=== PATIENT | female | born 1935 | race Caucasian/White ===

== ENCOUNTER 2017-08-28 12:59 | Inpatient (IN) | payer MEDICARE, OTHER ==
[2017-08-28 13:27] LABS: Base Excess-Venous -9.5 mmol/L (0 (+/- 2.5)); CO2 Tension (PvCO2) 32.9 mmHg (41.0-51.0); Calcium, Ionized 0.99 mmol/L (1.12-1.32); Hemoglobin - Calc 9.6 g/dL (12.0-18.0); O2 Tension (PvO2) 63.1 mmHg (35.0-45.0); Potassium 4.1 mmol/L (3.4-4.7); T. Carbon Dioxide 17.1 mmol/L (1.0-85.0); pH (Venous) 7.297 (7.35-7.45); vO2 Saturation-calc 89.6 % (94-98)
[2017-08-28 13:30] LABS: Hemoglobin 10.7 g/dL (12.0-16.0); Mean Corpuscular HGB CONC 34.3 g/dL (32.0-36.0); Mean Corpuscular Hemoglobin 31.9 pg (27.0-31.0); Mean Corpuscular Volume 92.8 fL (78.0-98.0); Platelet Count 97 thou/uL (130-400); RBC Distribution Width 12.8 % (11.5-14.5); Red Blood Cell (RBC) Count 3.37 mill/uL (4.20-5.40); White Blood Cell (WBC) Count 4.6 thou/uL (4.8-10.8)
[2017-08-28 13:34] LABS: INR-International Normal Ratio 1.4; Prothrombin Time 17.2 SEC (12.0-14.7)
[2017-08-28 13:48] LABS: Bilirubin Moderate (Negative); Blood, Urine Large (Negative); Clarity TURBID (Clear); Glucose, Urine (Dipstick) Negative (Negative); Leukocyte Large (Negative); Nitrite Negative (Negative); Protein, Urine (Dipstick) 300 mg/dL (Neg-Trace); Specific Gravity, Urine 1.022 (1.002-1.036)
[2017-08-28 13:50] LABS: Band 5 % (5-11); Eosinophils 1 % (0-10); Lymphocytes 6 % (21-51); MDiff Complete? YES; Monocytes 2 % (0-10); Neutrophil 86 % (42-75); PLT Morphology Comment Appears Decreased
[2017-08-28 13:50] LABS: Bacteria/HPF 4+ HPF (None Seen); Squamous Epithelial 21-50 HPF (0-3)
[2017-08-28 13:52] LABS: Pathc Cast-AUWi Flag 71.47 (0-2.49); Yeast-AUWi Flag 393.1 (0-25.0)
[2017-08-28 13:54] LABS: ALT (SGPT) 15 U/L (8-55); AST (SGOT) 16 U/L (5-34); Albumin 2.6 g/dL (3.4-4.8); Alkaline Phosphatase 102 U/L (40-150); Anion Gap 22 mmol/L (10-20); BUN (Urea Nitrogen) 112 mg/dL (9.8-20.1); Bilirubin, Total 0.5 mg/dL (0.2-1.2); CK (CPK) 171 U/L (29-168); Calc. Creatinine Clearance 0 mL/min (70-130); Calcium 8.4 mg/dL (7.8-10.44); Carbon Dioxide 16 mmol/L (23-31); Chloride 104 mmol/L (98-107); Estimated GFR-MDRD 5; Globulin 2.2 g/dL (2.4-3.5); Glucose 83 mg/dL (83-110); Lipase 16 U/L (8-78); Potassium 4.3 mmol/L (3.5-5.1); Protein, Total 4.8 g/dL (6.0-8.3); Sodium 138 mmol/L (136-145)
[2017-08-28 13:57] LABS: Troponin I 0.272 ng/mL (< 0.028)
[2017-08-28] MEDS ORDERED: Piperacillin/Tazobactam 4.5 GM VIAL ONE (13:57)
[2017-08-28 13:59] LABS: CKMB 9.9 ng/mL (0-6.6)
[2017-08-28 14:01] LABS: Crystals/HPF 1+ STARCH HPF (Negative); Hyaline Casts/LPF NONE SEEN LPF (0-3 Hyaline); Manual Microscopic Reviewed? No Path Casts Seen; Renal Epithelial None Seen HPF (0-3); Yeast-All Forms None Seen HPF (None Seen)
[2017-08-28] MEDS ORDERED: DOPamine 400 MG/D5W 250 ML 0 ML ONE (14:40)
--- NOTE | 2017-08-28 14:51 | RAD ---
FRONTAL VIEW CHEST: INDICATION: Altered mental status. FINDINGS: There is elevation of the right hemidiaphragm. Cardiomediastinal silhouette is accentuated by portab le technique. No free air is seen beneath the hemidiaphragms. IMPRESSION: No focal consolidation. POS: [facility]
[2017-08-28] MEDS ORDERED: Norepinephrine 8 MG/0.9% NS 250 ML ONE (14:53)
[2017-08-28] MEDS ORDERED: Bisacodyl 10 MG SUPP PR PRN (15:02)
[2017-08-28] MEDS ORDERED: Calcium Carbonate 500 MG ChewTAB PO PRN (15:02)
[2017-08-28] MEDS ORDERED: Loperamide HCl 2 MG CAP PO PRN (15:02)
[2017-08-28] MEDS ORDERED: Chloraseptic Spray 180 ml Bottle PO PRN (15:02)
[2017-08-28] MEDS ORDERED: Milk Of Magnesia 30 ML UDCUP PO PRN (15:02)
[2017-08-28] MEDS ORDERED: Sodium Chloride 0.45% 1,000 ML IV SCH (15:02)
[2017-08-28] MEDS ORDERED: Ondansetron ODT 4 MG TAB PO PRN (15:02)
[2017-08-28] MEDS ORDERED: Diabetic Tussin 200 MG/10 ML UDCUP PO PRN (15:02)
[2017-08-28] MEDS ORDERED: Mag-Al 1200 mg/1200 mg/30 ML UDCUP PO PRN (15:02)
[2017-08-28] MEDS ORDERED: Sodium Chloride 0.65% Nasal 44 ML BOT EA NARE PRN (15:02)
[2017-08-28] MEDS ORDERED: Senokot 8.6 MG TAB PO PRN (15:02)
[2017-08-28] MEDS ORDERED: Loratadine 10 MG TAB PO PRN (15:02)
[2017-08-28] MEDS ORDERED: Eucerin (Mineral Oil/Petrolatum,White) 30 gm Jar TOP PRN (15:02)
[2017-08-28] MEDS ORDERED: Ondansetron HCl/PF 4 MG/2 ML Vial IVP PRN (15:02)
[2017-08-28] MEDS ORDERED: Norepinephrine 8 MG/0.9% NS 250 ML IVPB SCH (15:15)
[2017-08-28 15:31] LABS: Fibrinogen 890 mg/dL (253-463)
[2017-08-28 15:32] LABS: INR-International Normal Ratio 1.3; PTT 40.9 SEC (22.9-36.1); Prothrombin Time 16.2 SEC (12.0-14.7)
[2017-08-28 15:33] LABS: D-Dimer Test 1.95 *mcg/mL (0.27-0.43)
--- NOTE | 2017-08-28 15:38 | HP ---
PRIMARY CARE PHYSICIAN: Ada Newman. REASON FOR ADMISSION: Septic shock, acute encephalopathy, acute kidney failure. HISTORY OF PRESENT ILLNESS: An 82-year-old female who was brought to emergency room by her f or altered mental status. For last 2 days, patient is gradually getting altered. The patient was co mpletely incoherent and less responsive at home and that is why her called paramedics today. When paramedics reached to her home, at that time, patient's blood pressure was in 60 systolic. The patient was given IV fluid and after that blood pressure only reached 280 systolic. Patient was not able to make any urine. In the emergency room, she was hypotensive. The patient was completely inc oherent and she was given almost for 5-6 liters of fluid. Despite that, her blood pressure was runni ng in 70 systolic. Patient was incoherent and unable to provide any history. Patient's was present at bedside and I spoke with him about patient's medical history, but he does not have any mor e clue as well. He reports that she is sick for last 2-3 days and she got altered and today she was very sick and that is why he has to call paramedics. He is not sure about she had any fever. She di d not have any nausea, vomiting, diarrhea. She did not complain of any chest pain, palpitation, coug h. She did not have any recent upper respiratory infection. The patient is not taking any blood pre ssure medication at home. Patient's is also very poor historian. REVIEW OF SYSTEMS: All review of systems tried to review with the patient, but unable to review at t his point because of encephalopathy. ALLERGIES: No known drug allergy. CURRENT HOME MEDICATIONS: The patient's brought some bottles and based on that, patient is t aking naproxen 500 mg twice daily, Flexeril 10 mg q.8 hourly p.r.n., Tylenol #3 one or two tablets q. 4 hourly p.r.n. PAST MEDICAL HISTORY: Unable to obtain from patient because of altered mental status. PAST SURGICAL HISTORY: Unable to obtain from patient because of altered mental status. PAST PSYCHIATRIC HISTORY: Unable to obtain from patient because of altered mental status. SOCIAL HISTORY: Patient is and lives at home with her . No history of tobacco, alcoh ol or illicit drug abuse as per patient's , FAMILY HISTORY: No strong family history of premature coronary artery disease, stroke or cancer. EMERGENCY ROOM COURSE: Patient has received 6 liters of IV fluid, Zosyn. Patient is getting central line and Levophed will be started after central line. PHYSICAL EXAMINATION: VITAL SIGNS: Currently, blood pressure 65/36, pulse 111, respiratory rate 22, temperature 98.0, satu ration 98% on room air, weight 80 kilograms. GENERAL: The patient is currently incoherent, hypotensive, mumbling, no obvious acute distress, satu rating normal with 2 liter nasal cannula. HEAD: Normocephalic, atraumatic. EYES: Pupils round, reactive to light. Extraocular muscle intact. No nystagmus. ENT: Dry mucous membrane, no oral lesion, no pharyngeal erythema, no exudate. NECK: Supple, no JVD, no thyromegaly, no carotid bruit. LUNGS: Clear to auscultation without any rhonchi or rales. No accessory muscles of respiration in u se. CARDIAC: S1, S2 regular, tachycardia, no murmur elicited, no gallop, no rub. ABDOMEN: Patient does have diffuse vague discomfort noted especially in suprapubic area. No periton eal signs, no distention. Bowel sounds present, no organomegaly, no mass. BACK: Patient does have back tenderness. EXTREMITIES: Upper extremity passive movements of all joints are normal. Lower extremities: No darrian ma. Good peripheral pulsation, no calf tenderness. SKIN: No skin rash. HEMATOLOGICAL SYSTEM: No lymphadenopathy. PSYCHIATRIC: Flat affect. NEUROLOGIC: She is moving all 4 limbs. Detailed neurological examination is not possible because of encephalopathy, but grossly nonfocal neurological examination. IMAGING DATA AND SIGNIFICANT LABORATORY DATA: EKG showing normal sinus rhythm, low voltage QRS compl ex. cardiac monitor showing sinus tachycardia. Chest x-ray based on my review, no acute cardiopul monary process. CBC: WBC 4.6, hemoglobin 10.7, platelet 97 with bandemia. INR 1.4. VBG: pH 7.29, CO2 32.9, bicarbonate 16, O2 63.1. BMP: Sodium 138, potassium 4.3, chloride 104, carbon dioxide 16 , anion gap 22, BUN 112, creatinine 7.67, glucose 83, calcium 8.4. Lactic acid 1.1. LFT: Total carlos irubin 0.5, AST 16, ALT 15, alkaline phosphatase 102, albumin 2.6, CK 171, CK-MB is 9.9, troponin 0.2 72. Lipase 16. Urinalysis consistent with urinary tract infection. ASSESSMENT AND PLAN/IMPRESSION: 1. Septic shock. This patient has hypotension. Her blood pressure is still not improved after aggr essive fluid resuscitation per protocol in the emergency room. She has acute kidney failure as well as demand ischemia of myocardium. Source of infection is mostly urinary tract infection. At this po int, patient will require CCU admission. Nephrology will be consulted for acute kidney failure. Pul monology will be consulted for critical care illness. Patient will require central line. ER physici an will do central line and after that we will start Levophed drip. We will also start stress dose o f hydrocortisone 100 mg q.8 hourly. The patient will be on bicarbonate drip for renal failure associ ated with sepsis. The patient will be on broad spectrum antibiotic therapy with vancomycin and Zosyn . Pharmacy will adjust antibiotics dose based on renal function. We will follow up on blood culture and urine culture and based on stability, we will decide changing antibiotic therapy. Patient's con dition is critical. I spoke with the patient's at bedside and confirmed her FULL CODE status . 2. Urinary tract infection with sepsis. The patient does have diffuse, vague lower abdominal discom fort. Once patient is stable, then we will obtain CT stone protocol to rule out underlying obstructi on. We will obtain renal ultrasound. Patient is already on vancomycin and Zosyn based on renal dose . We will follow up on culture result. 3. Severe sepsis with hypotension with acute organ dysfunction. The patient has acute kidney failur e, acute encephalopathy, demand ischemia of myocardium and severe hypotension. Patient is requiring vasopressor. The patient will be on bicarbonate drip for renal failure. Nephrology on the case. Th e patient is already on broad spectrum antibiotic therapy and patient will get IV fluid as well. We will monitor closely in CCU for any hemodynamic compromise. 4. Acute metabolic encephalopathy due to sepsis as well as renal failure. Patient does not have any focal neurological deficit. We will monitor neurological status. 5. Demand ischemia of myocardium. We will do serial cardiac enzymes x3 and rule out acute coronary syndrome. Patient does not have any chest pain. EKG is unremarkable, most likely related with sepsi s. 6. Anion gap acidosis. Patient is started on bicarbonate drip. We will monitor renal function. 7. Pancytopenia, likely due to sepsis. We will monitor CBC. 8. Coagulopathy due to sepsis. We will check DIC panel. 9. Acute kidney failure. We will obtain urine sodium, urine creatinine, urine osmolarity, urine pro tein. The patient is taking naproxen for a period of time, so maybe NSAIDs induced chronic kidney di sease on top of sepsis-induced acute tubular necrosis cannot be entirely excluded. Nephrology alkatharina y consulted. We will obtain renal ultrasound. 10. Deep venous thrombosis prophylaxis. We are avoiding heparin or Lovenox because of low platelet count and coagulopathy due to sepsis. 11. Gastrointestinal prophylaxis, Protonix 40 mg IV daily. 12. Code status. I spoke with the patient's at bedside and confirmed code status, FULL CODE . Patient's is surrogate decision maker. Disposition plan based on clinical course. We are expecting patient's stay in hospital more than 2 m idnights. The patient's condition is critical. Prognosis is guarded. Discussed with the patient's . I spoke with consultants as well. Total time spent providing critical care to this patient in the emergency room 35 minutes.
[2017-08-28 15:47] LABS: FSP-Qualitative Normal (Normal); Platelet Count 95 thou/uL (130-400)
[2017-08-28 15:52] LABS: Bilirubin Small (Negative); Blood, Urine Large (Negative); Clarity TURBID (Clear); Glucose, Urine (Dipstick) Negative (Negative); Leukocyte Large (Negative); Nitrite Negative (Negative); Protein, Urine (Dipstick) 100 mg/dL (Neg-Trace); Specific Gravity, Urine 1.015 (1.002-1.036)
[2017-08-28 15:54] LABS: Bacteria/HPF 4+ HPF (None Seen); RBC/HPF 21-50 HPF (0-3)
[2017-08-28 16:00] LABS: Pathc Cast-AUWi Flag 6.35 (0-2.49); Yeast-AUWi Flag 61.4 (0-25.0)
[2017-08-28] MEDS ORDERED: Lorazepam 2 MG/ML VIAL ONE (16:19)
[2017-08-28 16:20] LABS: Hyaline Casts/LPF 0-3 HYALINE CAST LPF (0-3 Hyaline); Manual Microscopic Reviewed? No Path Casts Seen; Yeast-All Forms None Seen HPF (None Seen)
--- NOTE | 2017-08-28 16:39 | RAD ---
AP VIEW OF THE CHEST: 08/28/17 INDICATION: Central line placement. COMPARISON: Prior exam dated 08/28/17. FINDINGS: A new right IJ central venous catheter projects in the region of the SVC. There is worsening cardiopu lmonary with pulmonary vascular congestion. There are small bilateral pleural effusions now present. No pneumothorax is evident. IMPRESSION: 1. Worsening CHF. 2. New IJ venous catheter projecting in the region of the SVC. POS: [facility]
[2017-08-28] MEDS ORDERED: Propofol 1,000 MG/100 ML VIAL IV ONE (17:18)
[2017-08-28 17:20] LABS: Actual Bicarbonate (HCO3a) 15.1 mEq/L (22-28); Base Excess (BEa) -12.5 mEq/L (-2.0 to +3.0); Calcium, Ionized 1.1 mmol/L (1.12-1.30); Hemoglobin (Hb) 11.9 g/dL (12.0-16.0); O2 Tension (PaO2) 76.2 mmHg (> 60.0); pH, Arterial 7.18 (7.35-7.45)
[2017-08-28 17:21] LABS: Puncture Site RBA
[2017-08-28] MEDS ORDERED: Midazolam HCl 2 mg/2 ml Vial ONE (17:29)
[2017-08-28] MEDS: Sodium Bicarbonate 150 MEQ in Dextrose 5% in Water 1,000 ML IV SCH (17:30)
[2017-08-28 18:02] LABS: Troponin I 0.279 ng/mL (< 0.028)
[2017-08-28] MEDS ORDERED: Lacri-Lube Opth Oint 3.5 GM TUBE EA EYE PRN (18:19)
[2017-08-28 18:23] LABS: Actual Bicarbonate (HCO3a) 12.2 mEq/L (22-28); CO2 Tension 21.3 mmHg (35.0-45.0); O2 Tension (PaO2) 82.2 mmHg (> 60.0); pH, Arterial 7.38 (7.35-7.45)
[2017-08-28 18:24] LABS: Hemoglobin (Hb) 12.2 g/dL (12.0-16.0); Puncture Site RBRACH
[2017-08-28 18:25] LABS: ALV-art Gradient 112.205 (0-20)
[2017-08-28] MEDS ORDERED: Ventilator Sedation Protocol 1 EACH FS SCH (18:30)
--- NOTE | 2017-08-28 18:31 | RAD ---
PORTABLE CHEST: 08/28/17 INDICATIONS: Shortness of breath. Post intubation. COMPARISON: Film earlier today. FINDINGS/IMPRESSION: ET tube has been placed. The tip is directed into the right main stem bronchus and should be retracte d. NG tube has been placed and this tube passes through the EG junction. Central line is unchanged in po sition. There is evidence of mild vascular congestion without evidence of focal infiltrate or consolidation. POS: [facility]
[2017-08-28] MEDS: Hydrocortisone Sod Succ/PF 100 mg/2 ml Vial IVP SCH (18:44)
[2017-08-28] MEDS ORDERED: fentaNYL Citrate/PF 2,000 MCG in Sodium Chloride 0.9% 60 ML IV SCH (18:46)
[2017-08-28] MEDS ORDERED: Fentanyl BOLUS 250 ML IVPB PRN (18:46)
[2017-08-28] MEDS ORDERED: Propofol 1,000 MG/100 ML VIAL IV PRN (18:46)
[2017-08-28] MEDS ORDERED: Propofol BOLUS 1,000 MG/100 ML VIAL IV PRN (18:46)
[2017-08-28] MEDS ORDERED: Lorazepam 2 MG/ML VIAL SLOW IVP PRN (18:46)
[2017-08-28] MEDS ORDERED: DISCONTINUE PREVIOUS NARCOTIC PAIN MEDICATIONS AND BENZODIAZEPINES FS SCH (18:46)
[2017-08-28] MEDS ORDERED: Vancomycin HCl 1.25 GM in Sodium Chloride 0.9% 250 ML 250 ML IVPB SCH (19:15)
[2017-08-28] MEDS ORDERED: Prevnar 13-Val Conj/PF 0.5 ML SYRINGE IM ONE (19:45)
--- NOTE | 2017-08-28 21:01 | CON ---
DATE OF CONSULTATION: 08/28/2017 CONSULTING PHYSICIAN: Yessica Jose M.D. REQUESTING PHYSICIAN: Dr. Mantilla and Dr. Tomas. REASON FOR CONSULTATION: Acute kidney injury. IMPRESSION: 1. Acute kidney injury. This is likely hemodynamically and cytokine-mediated injury/acute tubular n ecrosis in the context of sepsis. 2. Metabolic acidosis related to problem #1. 3. Sepsis, likely of urinary origin. PLAN: 1. Aggressive IV fluid resuscitation with bicarbonate based infusion. 2. Start this patient on stress dose steroid, hydrocortisone 100 mg q.8 hourly. 3. Renally dose all medications and avoid potentially nephrotoxic agents. 4. Hemodynamic support. 5. No emergent indication at this point for renal replacement therapy. HISTORY OF PRESENT ILLNESS: History is that of 82-year-old female patient that I cannot get much of any history from, who is obviously very sick, presented here having stopped eating and drinking and o n presentation was noted to be severely hypotensive with systolic blood pressure in the 60s-70s. The patient also noted to be clinically dry with very dry oral mucosa and also the skin is very dry. Th e patient with a creatinine of 7.67 on presentation with a BUN of 112. As a result of these findings , decision has been taken to involve Renal in the management of this case. PAST MEDICAL HISTORY: Significant for restless leg syndrome, status post appendectomy and history of depression. SOCIAL HISTORY: . No alcohol, no tobacco, no illicit drug use. REVIEW OF SYSTEMS: Could not be obtained given the clinical status of this patient. PHYSICAL EXAMINATION: GENERAL: The patient was found to be very critical. VITAL SIGNS: Hemodynamically unstable with systolic blood pressure in the 70s. HEENT: Remarkable for very dry oral mucosa. NECK: Supple. CARDIOVASCULAR SYSTEM: First and second heart sounds were heard. RESPIRATORY SYSTEM: Clear to auscultation. DIGESTIVE SYSTEM: Revealed a benign abdomen. EXTREMITIES: No peripheral edema. SKIN: Revealed dry skin. LYMPHATICS: No peripheral lymphadenopathy. SUMMARY: An 82-year-old female patient with severe acute kidney injury in the context of sepsis. Thank you for this consultation. We will follow with you.
[2017-08-28 21:34] LABS: CKMB 9.4 ng/mL (0-6.6); Troponin I 0.312 ng/mL (< 0.028)
--- NOTE | 2017-08-28 21:36 | ULT ---
RENAL ULTRASOUND: 08/28/17 INDICATION: Acute renal failure. FINDINGS: The right kidney measures 11.1 x 5 x 5 cm. Left kidney measures 10.3 x 4.7 x 4.8 cm. No focal renal l esion or hydronephrosis is evident. Florian catheter is seen within a decompressed bladder. IMPRESSION: No focal renal lesion or hydronephrosis. POS: [facility]
[2017-08-28] MEDS: Piperacillin/Tazobactam 2.25 GM in Sodium Chloride 0.9% 100 ML IVPB SCH (22:37)
--- NOTE | 2017-08-28 22:47 | CON ---
DATE OF CONSULTATION: 08/28/2017 SERVICE: Pulmonary Medicine. REASON FOR CONSULTATION: ICU patient. HISTORY OF PRESENT ILLNESS: The patient is 82-year-old white female with past medical history signif icant for mild dementia, who presents to the hospital after about 2-3 days of being off. Apparently, she had some hip discomfort for which took one of her 's pain medications. She went into a d eep sleep. She is poorly arousable, but when she woke up, she had ongoing discomfort. As such, she took another pain medication. She was later found obtunded by her son. She was brought to the emerg ency department by EMS Services. She was found to be extraordinarily hypotensive and poorly responsi ve with altered mentation. In the Emergency Department, she got 6 liters of fluid. She was a little conversive. That being said, confused about the situation. She is unable to provide any additional elements of the history. After 7th liter, a central line was placed and Levophed was initiated. Shon majano was brought into the ICU and shortly thereafter, she became extraordinarily combative and afraid. We had an ABG, demonstrated severe acidosis with failure to compensate completely. As such, we elect ed to intubate her because she is still a FULL CODE. She cannot provide additional elements of the h istory at this point. She is currently sedated and intubated. PAST MEDICAL HISTORY: Restless legs syndrome. PAST SURGICAL HISTORY: Appendectomy. SOCIAL HISTORY: We have no reports of alcohol, tobacco or illicit drug use. FAMILY HISTORY: Noncontributory. ALLERGIES: No allergy information is available. HOME MEDICATIONS: Lists of her inpatient medications were reviewed. Multiple updates were made. REVIEW OF SYSTEMS: This cannot be obtained because the patient is intubated and sedated. PHYSICAL EXAMINATION: VITAL SIGNS: Following intubation, pulse 72, blood pressure 147/73, respirations 27, saturation 99% on 31% FiO2 and PEEP of 5. GENERAL: Patient is intubated and sedated. HEENT: Normocephalic, atraumatic. Sclerae are white, conjunctivae pink. Oral mucosa is dry. No le sions are identified. LUNGS: Rhonchi are present bilaterally. No dependent crackles or wheezing are appreciated. HEART: Normal rate, regular. ABDOMEN: Soft, nontender and nondistended. Bowel sounds positive. MUSCULOSKELETAL: No cyanosis or clubbing. There is no pitting in the bilateral lower extremities. GENITOURINARY: Florian catheter in place. NEUROLOGIC: Grossly nonfocal. She was disoriented and agitated. That being said, she is moving all 4 extremities, breathing comfortably. Her pupils are equal, round, and reactive to light. LABORATORY DATA: WBC 4.6, hemoglobin 10.7 and platelets 97,000. Band count is 5% on top of 86% neut rophils. INR 1.3. PH 7.18, pCO2 41 and pO2 76. This corresponded to a saturation of 93%. Creatini ne 7.67. BUN 112. Anion gap 22, bicarbonate 16. Basic metabolic profile is otherwise unremarkable. Liver function studies are unremarkable with normal AST and ALT for the time being. Troponin is up trending to 0.279. CK-MB is also trending upward. Cortisol level 7.5 and lipase 16. Urinalysis is significant for pyuria, hematuria. Leukocyte esterase is positive. Nitrites, however, are unremark able. IMAGING DATA: Chest x-ray demonstrates right IJ is in good position. Endotracheal tube was directed towards the right mainstem bronchus. That being said, it has already been retracted. Enteric mikel ter is coursing below the level of the diaphragm. No significant effusions or overt consolidation is present. There is pulmonary vascular congestion noted. ASSESSMENT: 1. Septic shock. 2. Urinary tract infection. 3. Acute kidney injury. 4. Non-ST elevation myocardial infarction. 5. Metabolic encephalopathy. 6. Anion gap metabolic acidosis with failure to fully compensate. DISCUSSION AND PLAN: This patient is in a severe state. If she gets any worse throughout the evenin g, she will likely have a respiratory arrest. As such, we are going to electively intubate her to pr event this thing from happening. We will maintain her on Levophed to keep her map from 60-65. We wi ll watch her urine output. Hopefully, this will start to pharmacy picking tech. Agree with our empiric antibiotic s directed urine organisms and bicarbonate drip. Nephrology consultation will be placed, but at this point, I really do not see any absolute need for dialysis at this moment. Multiple adjustments have been made on the ventilator to maximize minute volume at this point with minimal effort. At this po int, we will continue on with pressure control ventilation. We will keep her sedated through the cindy jayde. CRITICAL CARE TIME: 105 minutes.
--- NOTE | 2017-08-28 23:43 | OP ---
DATE OF OPERATION: 08/28/2017 SERVICE: Pulmonary Medicine. PROCEDURE PERFORMED: Endotracheal intubation. CONSENT: The risks and benefits of the procedure were discussed with the patient's surrogate michaleismeka n maker prior to initiating. It was a fairly urgent situation. STAFF PHYSICIAN: Clayton Moss MD MEDICATIONS USED: 1. Versed 2 mg IV push. 2. Etomidate ____ IV push. PREOPERATIVE DIAGNOSES: 1. Septic shock. 2. Metabolic acidosis. POSTOPERATIVE DIAGNOSES: 1. Septic shock. 2. Metabolic acidosis. DESCRIPTION OF PROCEDURE: Vital sign monitoring was accomplished by noninvasive hemodynamic monitori ng, pulse oximetry, and telemetry. In the supine position, the patient was preoxygenated with bag va lve mask ventilation and maintained with saturation 100%. Following induction of anesthesia, a #4 Gl ideScope was inserted through the mouth offering a grade III view of the laryngeal structures. An en dotracheal tube was visualized passing through the vocal cords. Placement was confirmed by condensat ion in the endotracheal tube, and by axillary chest auscultation. The endotracheal was secured at 23 cm, measured at the teeth, but was subsequently retracted based on the chest x-ray finding and pulle d back to 21 cm. There was good return of volumes on mechanical ventilation. ESTIMATED BLOOD LOSS: None. COMPLICATIONS: None.
[2017-08-29] MEDS: Hydrocortisone Sod Succ/PF 100 mg/2 ml Vial IVP SCH ×5 (00:39→22:51)
[2017-08-29] MEDS: Sodium Bicarbonate 150 MEQ in Dextrose 5% in Water 1,000 ML IV SCH ×3 (01:42→12:19)
[2017-08-29] MEDS: Piperacillin/Tazobactam 2.25 GM in Sodium Chloride 0.9% 100 ML IVPB SCH ×3 (05:24→22:45)
[2017-08-29 06:25] LABS: ALT (SGPT) 16 U/L (8-55); AST (SGOT) 21 U/L (5-34); Albumin 2.4 g/dL (3.4-4.8); Alkaline Phosphatase 132 U/L (40-150); Anion Gap 17 mmol/L (10-20); BUN (Urea Nitrogen) 93 mg/dL (9.8-20.1); Bilirubin, Total 1.5 mg/dL (0.2-1.2); Calc. Creatinine Clearance 9 mL/min (70-130); Carbon Dioxide 18 mmol/L (23-31); Chloride 106 mmol/L (98-107); Estimated GFR-MDRD 7; Globulin 2.4 g/dL (2.4-3.5); Glucose 185 mg/dL (83-110); Potassium 3.2 mmol/L (3.5-5.1); Protein, Total 4.8 g/dL (6.0-8.3); Sodium 138 mmol/L (136-145)
[2017-08-29 07:09] LABS: Band 21 % (5-11); Hemoglobin 11.5 g/dL (12.0-16.0); Lymphocytes 7 % (21-51); MDiff Complete? YES; Mean Corpuscular HGB CONC 34.8 g/dL (32.0-36.0); Mean Corpuscular Hemoglobin 31.2 pg (27.0-31.0); Mean Corpuscular Volume 89.5 fL (78.0-98.0); Monocytes 3 % (0-10); Myelocyte 1 % (0-0); Neutrophil 68 % (42-75); PLT Morphology Comment Appears Decreased; Platelet Count 98 thou/uL (130-400); RBC Distribution Width 12.7 % (11.5-14.5); Red Blood Cell (RBC) Count 3.68 mill/uL (4.20-5.40); White Blood Cell (WBC) Count 4.7 thou/uL (4.8-10.8)
[2017-08-29] MEDS: Pantoprazole 40 MG VIAL IVP SCH (09:09)
[2017-08-29] MEDS: Saccharomyces boulardii 250 MG CAP PO SCH (09:09)
[2017-08-29] MEDS ORDERED: Potassium Chloride 40 MEQ in Premix Bag 1 BAG IVPB SCH (09:45)
--- NOTE | 2017-08-29 10:20 | CON ---
DATE OF CONSULTATION: 08/29/2017 REASON FOR CONSULTATION: Tachycardia-bradycardia syndrome, atrial arrhythmias. HISTORY OF PRESENT ILLNESS: Ms. Ese Woods is an 82-year-old woman brought to the hospital. She h ad respiratory failure. It was thought to be likely due to pain medications and possibly also urinar y infection. She did require intubation. She also received large amounts of fluid for the above men tioned problems as well as hypotension which also required Levophed. She had a severe metabolic acid osis. Ultimately, she was intubated. PAST MEDICAL HISTORY: Restless leg syndrome. PAST SURGICAL HISTORY: Appendectomy. SOCIAL HISTORY: No alcohol or tobacco. FAMILY HISTORY: Noncontributory. ALLERGIES: None known. HOME MEDICATIONS: Naproxen, cyclobenzaprine, acetaminophen with codeine. REVIEW OF SYSTEMS: Not obtainable. She is intubated on the ventilator. PHYSICAL EXAMINATION: GENERAL: She is an elderly woman, intubated and ventilated. VITAL SIGNS: Blood pressure 115/64, pulse is now 51 in sinus. HEENT: Eyes sclerae nonicteric. Mucous membranes moist. NECK: Neck veins do not appear distended. LUNGS: Clear anteriorly and laterally. CARDIAC: Normal S1, normal S2. I do not hear murmur, rub or gallop. ABDOMEN: Soft, nontender, no hepatosplenomegaly. EXTREMITIES: Warm, dry, no clubbing or cyanosis. There is no edema. PERTINENT LABORATORY AND X-RAY FINDINGS: Potassium is 3.2 that is going to be repeated. Her metabol ic acidosis is improved. The peak troponin was 0.312. EKG has revealed some paroxysmal atrial fibri llation, brief episodes, no known history of that and also some sinus bradycardia when she goes into atrial fibrillation, rate is 100. There are just brief episodes, now she has a sinus bradycardia. T here are T-wave inversions in one of the inferior leads. ASSESSMENT: 1. Respiratory failure, multifactorial, thought due to medications, possibly also infection. 2. Tachycardia-bradycardia syndrome. 3. Metabolic acidosis, improving. 4. Increased troponin level, probably demand ischemia, but could have underlying coronary artery dis ease as well. PLAN: 1. Replete potassium. 2. Repeat EKG. 3. Echocardiogram. We will follow with you.
--- NOTE | 2017-08-29 10:33 | PDOC.PN ---
- Subjective Encounter Start Date: 08/29/17 Encounter Start Time: 09:40 -: old records requested/rev pt's bedside, updated plan to him, she is on ventilator, her Bp improved , she is sedated - Objective Resuscitation Status: Resuscitation Status FULL:Full Resuscitation MAR Reviewed: Yes Vital Signs & Weight: Vital Signs (12 hours) Temp Pulse Resp 08/29/17 10:18 57 L 08/29/17 10:00 17 08/29/17 08:00 98.4 F 17 08/29/17 06:41 92 08/29/17 06:00 17 08/29/17 04:00 98.2 F 17 08/29/17 02:13 87 08/29/17 02:00 17 08/29/17 00:00 98.3 F 17 Weight Weight 163 lb 12.855 oz Most Recent Monitor Data Heart Rate from ECG 66 NIBP 117/77 NIBP BP-Mean 99 Respiration from ECG 17 SpO2 98 I&O: 08/28/17 08/29/17 08/30/17 06:59 06:59 06:59 Intake Total 2403 Output Total 945 915 Balance 1458 -915 Result Diagrams: 08/29/17 05:30 08/29/17 05:30 EKG Reviewed by me: Yes (paroxysmal afib new onset on monitor) Phys Exam - Physical Examination Constitutional: NAD on ventilator HEENT: PERRLA, sclera anicteric Neck: no JVD, supple Respiratory: no wheezing, no rales, no rhonchi Cardiovascular: no significant murmur, irregular Gastrointestinal: soft, no distention, positive bowel sounds Musculoskeletal: no edema, pulses present scd+ unable to assess due to intubated status Lymphatic: no nodes Deviation from normal: unable to assess Skin: no rash, normal turgor Dx/Plan (1) Acute kidney failure Status: Acute (2) Acute metabolic encephalopathy Code(s): G93.41 - METABOLIC ENCEPHALOPATHY Status: Acute (3) Acute respiratory failure with hypoxia Code(s): J96.01 - ACUTE RESPIRATORY FAILURE WITH HYPOXIA Status: Acute (4) Atrial fibrillation, new onset Code(s): I48.91 - UNSPECIFIED ATRIAL FIBRILLATION Status: Acute (5) Bacteremia due to Klebsiella pneumoniae Code(s): R78.81 - BACTEREMIA Status: Acute (6) Metabolic acidosis Code(s): E87.2 - ACIDOSIS Status: Acute (7) NSTEMI (non-ST elevated myocardial infarction) Code(s): I21.4 - NON-ST ELEVATION (NSTEMI) MYOCARDIAL INFARCTION Status: Acute (8) Pancytopenia Code(s): D61.818 - OTHER PANCYTOPENIA Status: Acute (9) Sepsis with acute organ dysfunction Code(s): A41.9 - SEPSIS, UNSPECIFIED ORGANISM; R65.20 - SEVERE SEPSIS WITHOUT SEPTIC SHOCK Status: Acute (10) Septic shock Code(s): A41.9 - SEPSIS, UNSPECIFIED ORGANISM; R65.21 - SEVERE SEPSIS WITH SEPTIC SHOCK Status: Acute (11) UTI (urinary tract infection) Status: Acute (12) Obesity (BMI 30.0-34.9) Code(s): E66.9 - OBESITY, UNSPECIFIED Status: Chronic - Plan cont current plan of care, plan discussed w/ family, continue antibiotics * continue zosyn * replace potassium * vent managerment as per pulmonary * medication reviewed as below * symptomatic treatment * discussed with bedside * follow C & S result * monitor renal function, improving, good urine output. Review of Systems - Review of Systems Other: unable to review due to intubated status - Medications/Allergies Allergies/Adverse Reactions: Allergies Allergy/AdvReac Type Severity Reaction Status Date / Time No Allergy Information Allergy Verified 08/28/17 19:42 Available Medications: Current Medications Acetaminophen (Tylenol) 650 mg PO Q4H PRN PRN Reason: Headache/Fever or Pain Al Hydroxide/Mg Hydroxide (Maalox) 30 ml PO Q6H PRN PRN Reason: Heartburn or Indigestion Albuterol/Ipratropium (Duoneb) 3 ml NEB [id number] PRN PRN Reason: SOB &/or Wheezing Bisacodyl (Dulcolax) 10 mg [place] Q24H PRN PRN Reason: Constipation Calcium Carbonate (Tums) 1,000 mg PO Q4H PRN PRN Reason: Heartburn or Indigestion Guaifenesin (Robitussin Sf) 200 mg PO Q4H PRN PRN Reason: Cough Hydrocortisone Sodium Succinate (Solu-Cortef) 100 mg IVP 0800,1600,2359 [facility] Last Admin: 08/29/17 09:09 Dose: 100 mg Sodium Bicarbonate 150 meq/ (Dextrose/Water) 1,150 mls @ 125 mls/hr IV .Q9H12M [facility] Last Admin: 08/29/17 01:42 Dose: 1,150 mls Piperacillin Sod/Tazobactam (Sod 2.25 gm/ Sodium Chloride) 100 mls @ 200 mls/ hr IVPB Q8HR [facility] Last Admin: 08/29/17 05:24 Dose: 100 mls Norepinephrine Bitartrate (Levophed) 250 mls @ 0 mls/hr IVPB INF [facility]; Titrate PRN Reason: Protocol Fentanyl Citrate 2,000 mcg/ (Sodium Chloride) 100 mls @ 0 mls/hr IV INF [facility]; Per Protocol PRN Reason: Protocol Stop: 09/27/17 18:46 Fentanyl Citrate (Fentanyl Bolus) 250 mls @ 0 mls/hr IVPB PRN PRN; As Directed PRN Reason: Breakthrough pain/agitation Stop: 09/27/17 18:46 Potassium Chloride 40 meq/ (Device) 100 mls @ 25 mls/hr IVPB NOW [facility] Stop: 08/29/17 13:44 Last Admin: 08/29/17 09:52 Dose: 100 mls Loperamide HCl (Imodium) 2 mg PO PRN PRN PRN Reason: Diarrhea/Loose Stools Loratadine (Claritin) 10 mg PO DAILYPRN PRN PRN Reason: Sinus Symptoms Lorazepam (Ativan) 2 mg SLOW IVP Q1H PRN PRN Reason: Breakthrough agitation Stop: 09/27/17 18:46 Magnesium Hydroxide (Milk Of Magnesium) 30 ml PO DAILYPRN PRN PRN Reason: Constipation Mineral Oil/White Petrolatum (Eucerin Cream) 0 gm TOP BIDPRN PRN PRN Reason: Dry Skin Mineral Oil/White Petrolatum (Lacri-Lube Ointment) 0 gm EA EYE PRN PRN PRN Reason: Dry Eyes Miscellaneous Medication (Pharmacy To Dose) 1 each IVPB ONE PRN PRN Reason: Pharmacy to dose Stop: 09/07/17 15:03 Morphine Sulfate (Morphine Sulfate) 2 mg SLOW IVP Q1H PRN PRN Reason: BREAKTHROUGH PAIN/AGITATION Stop: 09/27/17 18:46 Discontinue Previous Narcotic Pain Medications And Benzodiazepines 1 each FS .ONE [facility] Stop: 09/27/17 18:46 Ondansetron HCl (Zofran Odt) 4 mg PO Q6H PRN PRN Reason: Nausea/Vomiting Ondansetron HCl (Zofran) 4 mg IVP Q6H PRN PRN Reason: Nausea/Vomiting Pantoprazole Sodium (Protonix) 40 mg IVP DAILY [facility] Last Admin: 08/29/17 09:09 Dose: 40 mg Phenol (Chloraseptic Aneta 180 Ml Bot) 0 ml PO PRN PRN PRN Reason: Sore Throat Propofol (Diprivan) 1,000 mg IV INF PRN; Protocol PRN Reason: TO ACHIEVE GOAL RASS Stop: 09/27/17 18:46 Last Admin: 08/29/17 04:16 Dose: 1,000 mg Propofol (Diprivan Bolus) 20 mg IV Q5MIN PRN PRN Reason: BREAKTHROUGH AGITATION Stop: 09/27/17 18:46 Saccharomyces Boulardii (Florastor) 250 mg PO DAILY [facility] Last Admin: 08/29/17 09:09 Dose: 250 mg Senna (Senokot) 2 tab PO HSPRN PRN PRN Reason: Constipation Sodium Chloride ([place] Nasal Aneta 0.65%) 0 ml EA NARE QIDPRN PRN PRN Reason: Nasal Congestion
--- NOTE | 2017-08-29 11:25 | PRG ---
DATE OF SERVICE: 08/29/2017 SERVICE: Pulmonary Medicine. INTERVAL HISTORY: The patient is doing outstanding from a respiratory standpoint. Overnight, her ur ine output actually started to sweet pickled fruit maker a little bit. Mentation campos, she is at baseline. She is mov ing all four extremities. She cannot voice any complaints, because she is currently intubated and un allyn the influence of some sedation. PHYSICAL EXAMINATION: VITAL SIGNS: Afebrile, pulse 57, blood pressure 117/77, respirations 17, saturation 98% on 31% FiO2. GENERAL: The patient is intubated and sedated. HEENT: Normocephalic, atraumatic. Sclerae are white, conjunctivae pink. Oral and nasal mucosa is m oist without lesions. LUNGS: Excellent air entry today. There is no prolonged expiratory phase. Amazingly, I do not hear any crackles. HEART: Normal rate, regular. ABDOMEN: Soft, nontender, nondistended. Bowel sounds are positive. MUSCULOSKELETAL: No cyanosis or clubbing. There is no pitting in the bilateral lower extremities. Turgor is improved. GENITOURINARY: Florian catheter in place. NEUROLOGIC: Grossly nonfocal. LABORATORY DATA: WBC 4.7, hemoglobin 11.5, platelets 98,000 and roughly stable. Band count 21% on t op of 68% neutrophils. INR 1.3. Creatinine 5.67 and beautifully downtrending; BUN 93, also downtren ding. Basic metabolic profile is, otherwise, unremarkable. Potassium is 3.2. Liver function studie s are essentially unremarkable. Her bilirubin is gently up-trending to 1.5. Troponin was previously up-trending to 0.312. AST and ALT fall within the normal limits. Urinalysis is dirty. Blood cultu res are growing Klebsiella pneumoniae. Urine culture is growing a gram-negative jacky, which has yet t o be identified. ASSESSMENT: 1. Septic shock. 2. Urinary tract infection, secondary to Klebsiella. 3. Bacteremia, secondary to Klebsiella. 4. Respiratory failure, with inability to keep up with metabolic demand. 5. [id number] myocardial infarction. 6. Metabolic encephalopathy. 7. Anion gap metabolic acidosis, resolved. DISCUSSION AND PLAN: We will discontinue the bicarbonate drip. I will interrupt our sedation. When she wakes up, we will place her on a spontaneous breathing trial. If she meets criteria, extubation will be considered. She has made a profound and robust recovery in a very short period of time. My suspicion is that she does have a septic shock event. That being said, I think that she was also in a horrendously dehydrated state on presentation to the hospital. Her baseline cognitive function wi ll need to be assessed very closely in the outpatient setting, and I do think she may benefit from a temporary placement in a correction facility. She is currently off of Levophed. Multiple inter ventions will be interrupted.
[2017-08-29 12:55] LABS: Actual Bicarbonate (HCO3a) 22.6 mEq/L (22-28); Hemoglobin (Hb) 11.6 g/dL (12.0-16.0); O2 Tension (PaO2) 79.3 mmHg (> 60.0); pH, Arterial 7.49 (7.35-7.45)
[2017-08-29 12:56] LABS: Puncture Site RBA
[2017-08-29 14:07] LABS: Anion Gap 16 mmol/L (10-20); BUN (Urea Nitrogen) 91 mg/dL (9.8-20.1); Calc. Creatinine Clearance 9 mL/min (70-130); Calcium 7.9 mg/dL (7.8-10.44); Carbon Dioxide 24 mmol/L (23-31); Chloride 104 mmol/L (98-107); Estimated GFR-MDRD 7; Glucose 164 mg/dL (83-110); Potassium 4.1 mmol/L (3.5-5.1); Sodium 140 mmol/L (136-145)
--- NOTE | 2017-08-29 18:08 | PRG ---
DATE OF SERVICE: 08/29/2017 SUBJECTIVE: Seen and examined and has been extubated, doing better, still complained of feeling very thirsty with following. PHYSICAL EXAMINATION: VITAL SIGNS: Blood pressure 113/57, pulse 64, respiratory rate 21, O2 sat 96%. HEENT: Unremarkable. CARDIOVASCULAR SYSTEM: First and heart sounds were heard. RESPIRATORY SYSTEM: Showed some transmitted sounds. DIGESTIVE SYSTEM: Revealed a benign abdomen. EXTREMITIES: No significant peripheral edema. SKIN: No new gross rash. IMPRESSION: 1. Acute tubular necrosis in the context of sepsis. 2. Metabolic acidosis, much improved. 3. Cardiopulmonary failure, extubated. PLAN: 1. Discontinue bicarbonate drip. 2. Continue renal supportive measures. 3. Renally dose medications and avoid potentially nephrotoxic agents. 4. Further management to be dependent on the clinical course. 5. No indication for renal replacement therapy at this point.
[2017-08-29] MEDS: Acetaminophen 325 MG TAB PO PRN (19:21)
[2017-08-30] MEDS: Sodium Bicarbonate 150 MEQ in Dextrose 5% in Water 1,000 ML IV SCH (01:56)
[2017-08-30 04:07] LABS: Anion Gap 17 mmol/L (10-20); BUN (Urea Nitrogen) 93 mg/dL (9.8-20.1); Calc. Creatinine Clearance 10 mL/min (70-130); Calcium 8.2 mg/dL (7.8-10.44); Carbon Dioxide 28 mmol/L (23-31); Chloride 98 mmol/L (98-107); Estimated GFR-MDRD 8; Glucose 164 mg/dL (83-110); Magnesium 1.7 mg/dL (1.6-2.6); Phosphorus 4.7 mg/dL (2.3-4.7); Potassium 3.5 mmol/L (3.5-5.1); Sodium 139 mmol/L (136-145)
[2017-08-30 04:24] LABS: Band 25 % (5-11); Hemoglobin 10.8 g/dL (12.0-16.0); Lymphocytes 11 % (21-51); MDiff Complete? YES; Mean Corpuscular HGB CONC 35.1 g/dL (32.0-36.0); Mean Corpuscular Hemoglobin 31.7 pg (27.0-31.0); Mean Corpuscular Volume 90.4 fL (78.0-98.0); Mean Platelet Volume 8.5 fL (7.4-10.4); Monocytes 3 % (0-10); Neutrophil 61 % (42-75); PLT Morphology Comment Appears Decreased; Platelet Count 75 thou/uL (130-400); RBC Distribution Width 12.9 % (11.5-14.5); Red Blood Cell (RBC) Count 3.39 mill/uL (4.20-5.40); White Blood Cell (WBC) Count 8.7 thou/uL (4.8-10.8)
[2017-08-30] MEDS: Hydrocortisone Sod Succ/PF 100 mg/2 ml Vial IVP SCH (05:29)
[2017-08-30] MEDS: Piperacillin/Tazobactam 2.25 GM in Sodium Chloride 0.9% 100 ML IVPB SCH (05:29)
[2017-08-30] MEDS: Saccharomyces boulardii 250 MG CAP PO SCH (08:29)
[2017-08-30] MEDS: Pantoprazole 40 MG VIAL IVP SCH (08:30)
--- NOTE | 2017-08-30 11:49 | PDOC.PN ---
- Subjective Encounter Start Date: 08/30/17 Encounter Start Time: 10:00 pt was extubated yesterday, this morning seated in chair, no fever - Objective Resuscitation Status: Resuscitation Status FULL:Full Resuscitation MAR Reviewed: Yes Vital Signs & Weight: Vital Signs (12 hours) Temp Pulse Resp Pulse Ox 08/30/17 07:25 97.5 F L 83 20 95 08/30/17 07:00 97.5 F L 08/30/17 04:00 97.5 F L 08/30/17 00:00 97.1 F L Weight Weight 162 lb 11.218 oz Most Recent Monitor Data Heart Rate from ECG 72 NIBP 119/69 NIBP BP-Mean 98 Respiration from ECG 12 SpO2 95 I&O: 08/29/17 08/30/17 08/31/17 06:59 06:59 06:59 Intake Total 2403 3532.5 240 Output Total 945 1818 325 Balance 1458 1714.5 -85 Result Diagrams: 08/30/17 03:30 08/30/17 03:30 EKG Reviewed by me: Yes (nsr) Phys Exam - Physical Examination Constitutional: NAD HEENT: PERRLA, moist MMs, sclera anicteric Neck: no JVD, supple Respiratory: no wheezing, no rales, no rhonchi Cardiovascular: RRR, no significant murmur, no rub Gastrointestinal: soft, non-tender, no distention, positive bowel sounds Musculoskeletal: no edema, pulses present Neurological: non-focal, normal sensation Lymphatic: no nodes Psychiatric: normal affect, A&O x 3 Skin: no rash, normal turgor Dx/Plan (1) Acute kidney failure Status: Acute Comment: improving (2) Acute metabolic encephalopathy Code(s): G93.41 - METABOLIC ENCEPHALOPATHY Status: Resolved (3) Acute respiratory failure with hypoxia Code(s): J96.01 - ACUTE RESPIRATORY FAILURE WITH HYPOXIA Status: Resolved (4) Atrial fibrillation, new onset Code(s): I48.91 - UNSPECIFIED ATRIAL FIBRILLATION Status: Acute Comment: paroxysmal (5) Bacteremia due to Klebsiella pneumoniae Code(s): R78.81 - BACTEREMIA Status: Acute (6) Metabolic acidosis Code(s): E87.2 - ACIDOSIS Status: Acute (7) NSTEMI (non-ST elevated myocardial infarction) Code(s): I21.4 - NON-ST ELEVATION (NSTEMI) MYOCARDIAL INFARCTION Status: Acute (8) Pancytopenia Code(s): D61.818 - OTHER PANCYTOPENIA Status: Acute (9) Sepsis with acute organ dysfunction Code(s): A41.9 - SEPSIS, UNSPECIFIED ORGANISM; R65.20 - SEVERE SEPSIS WITHOUT SEPTIC SHOCK Status: Acute (10) Septic shock Code(s): A41.9 - SEPSIS, UNSPECIFIED ORGANISM; R65.21 - SEVERE SEPSIS WITH SEPTIC SHOCK Status: Resolved (11) UTI (urinary tract infection) Status: Acute (12) Obesity (BMI 30.0-34.9) Code(s): E66.9 - OBESITY, UNSPECIFIED Status: Chronic - Plan cont current plan of care, plan discussed w/ family, continue antibiotics, PT/OT , social worker delinquency prevention * continue zosyn * transfer to tele * start PT * medication reviewed as below * symptomatic treatment * will repeat labs tomorrow. * still has bandemia and renal function slowly improving Review of Systems - Review of Systems Eyes: negative: Pain, Vision Change, Conjunctivae Inflammation, Eyelid Inflammation, Redness, Other ENT: negative: Ear Pain, Ear Discharge, Nose Pain, Nose Discharge, Nose Congestion, Mouth Pain, Mouth Swelling, Throat Pain, Throat Swelling, Other Respiratory: negative: Cough, Dry, Shortness of Breath, Hemoptysis, SOB with Excertion, Pleuritic Pain, Sputum, Wheezing Cardiovascular: negative: chest pain, palpitations, orthopnea, paroxysmal nocturnal dyspnea, edema, light headedness, other Gastrointestinal: negative: Nausea, Vomiting, Abdominal Pain, Diarrhea, Constipation, Melena, Hematochezia, Other Genitourinary: negative: Dysuria, Frequency, Incontinence, Hematuria, Retention , Other Musculoskeletal: negative: Neck Pain, Shoulder Pain, Arm Pain, Back Pain, Hand Pain, Leg Pain, Foot Pain, Other - Medications/Allergies Allergies/Adverse Reactions: Allergies Allergy/AdvReac Type Severity Reaction Status Date / Time No Allergy Information Allergy Verified 08/28/17 19:42 Available Medications: Current Medications Acetaminophen (Tylenol) 650 mg PO Q4H PRN PRN Reason: Headache/Fever or Pain Last Admin: 08/29/17 19:21 Dose: 650 mg Al Hydroxide/Mg Hydroxide (Maalox) 30 ml PO Q6H PRN PRN Reason: Heartburn or Indigestion Albuterol/Ipratropium (Duoneb) 3 ml NEB [id number] PRN PRN Reason: SOB &/or Wheezing Bisacodyl (Dulcolax) 10 mg [place] Q24H PRN PRN Reason: Constipation Calcium Carbonate (Tums) 1,000 mg PO Q4H PRN PRN Reason: Heartburn or Indigestion Guaifenesin (Robitussin Sf) 200 mg PO Q4H PRN PRN Reason: Cough Hydrocortisone Sodium Succinate (Solu-Cortef) 50 mg IVP Q6HR [facility] Last Admin: 08/30/17 05:29 Dose: 50 mg Piperacillin Sod/Tazobactam (Sod 2.25 gm/ Sodium Chloride) 100 mls @ 200 mls/ hr IVPB Q8HR [facility] Last Admin: 08/30/17 05:29 Dose: 100 mls Sodium Bicarbonate 150 meq/ (Dextrose/Water) 1,150 mls @ 75 mls/hr IV .[id number] [facility] Last Admin: 08/30/17 01:56 Dose: 1,150 mls Loperamide HCl (Imodium) 2 mg PO PRN PRN PRN Reason: Diarrhea/Loose Stools Loratadine (Claritin) 10 mg PO DAILYPRN PRN PRN Reason: Sinus Symptoms Magnesium Hydroxide (Milk Of Magnesium) 30 ml PO DAILYPRN PRN PRN Reason: Constipation Mineral Oil/White Petrolatum (Eucerin Cream) 0 gm TOP BIDPRN PRN PRN Reason: Dry Skin Miscellaneous Medication (Pharmacy To Dose) 1 each IVPB ONE PRN PRN Reason: Pharmacy to dose Stop: 09/07/17 15:03 Ondansetron HCl (Zofran Odt) 4 mg PO Q6H PRN PRN Reason: Nausea/Vomiting Ondansetron HCl (Zofran) 4 mg IVP Q6H PRN PRN Reason: Nausea/Vomiting Pantoprazole Sodium (Protonix) 40 mg IVP DAILY [facility] Last Admin: 08/30/17 08:30 Dose: 40 mg Phenol (Chloraseptic [place] 180 Ml Bot) 0 ml PO PRN PRN PRN Reason: Sore Throat Propofol (Diprivan) 1,000 mg IV INF PRN; Protocol PRN Reason: TO ACHIEVE GOAL RASS Stop: 09/27/17 18:46 Last Admin: 08/29/17 04:16 Dose: 1,000 mg Propofol (Diprivan Bolus) 20 mg IV Q5MIN PRN PRN Reason: BREAKTHROUGH AGITATION Stop: 09/27/17 18:46 Saccharomyces Boulardii (Florastor) 250 mg PO DAILY [facility] Last Admin: 08/30/17 08:29 Dose: 250 mg Senna (Senokot) 2 tab PO HSPRN PRN PRN Reason: Constipation Sodium Chloride ([place] Nasal [place] 0.65%) 0 ml EA NARE QIDPRN PRN PRN Reason: Nasal Congestion
[2017-08-30] MEDS ORDERED: Magnesium 2 GM/NS 0.9% 100 ML 2 GM in Premix Bag 1 BAG IVPB SCH (12:00)
[2017-08-30] MEDS ORDERED: Potassium Chloride 20 MEQ TAB PO SCH (12:00)
--- NOTE | 2017-08-30 12:20 | PRG ---
DATE OF SERVICE: 08/30/2017 SERVICE: Pulmonary Medicine. INTERVAL HISTORY: The patient is doing fine from a respiratory standpoint. She denies any chest sherin n, nausea, vomiting, fevers, or chills. She does have some chronic discomfort. She is requesting fr equent medications for it. She got multiple demands. Ultimately, she is doing well enough to get ou t of the ICU. She is sitting comfortably in a chair and has no specific complaint that we are going to be doing anything about right now. PHYSICAL EXAMINATION: VITAL SIGNS: Afebrile, pulse 72, blood pressure 119/69, respirations 12, saturation 95% on 2 liters nasal cannula. GENERAL: The patient is awake, alert, in no apparent distress. LUNGS: There is excellent air entry bilaterally. There are really no crackles, wheezing, or rhonchi . HEART: Normal rate, regular. ABDOMEN: Soft, nontender, nondistended. Bowel sounds are positive. MUSCULOSKELETAL: No cyanosis or clubbing. No pitting in the bilateral lower extremities. NEUROLOGIC: Grossly nonfocal. LABORATORY DATA: WBC 8.7, hemoglobin 10.8, platelets 75,000. Band count is 25% on top of 61% neutro phils, which are roughly stable. Lymphocyte count is actually rebounding slightly. INR 1.3. Creati nine is beautifully down-trending to 5.05, BUN 93. Basic metabolic profile is, otherwise, unremarkab le. Magnesium 1.7. Klebsiella pneumoniae is growing in the urine. Gram-negative rods x2 are growin g in blood cultures. The Klebsiella pneumoniae sensitive to basically everything including Rocephin. IMAGING: Echocardiogram demonstrates normal ejection fraction with structurally normal valves. Ther e is moderate aortic regurgitation noted. Minimally elevated pulmonary artery pressures are identifi ed. ASSESSMENT: 1. Septic shock. 2. Urinary tract infection, secondary to Klebsiella. 3. Bacteremia, secondary to Klebsiella. 4. Respiratory failure with inability to keep up with metabolic demand, status post intubation and s ubsequent extubation. 5. [id number] myocardial infarction. 6. Metabolic encephalopathy, resolving. 7. Hypokalemia. 8. Acute kidney injury with recovery. PLAN: We will replace potassium and magnesium today. We will continue her free water, but I do not think she needs the bicarbonate drip anymore, so this is going to be discontinued. She can transitio n to the medical unit. In 24 hours, if she continues to do well, she can be considered for transitio n over to p.o., fluoroquinolone and discharged from the hospital with a 2-week course of antibiotic. If she is doing well, we will likely sign off in 24 hours.
[2017-08-30] MEDS ORDERED: Magnesium Sulfate 2 GM, Admixture Fee 1 EACH in Sodium Chloride 0.9% 100 ML IVPB SCH (12:30)
[2017-08-30] MEDS: Sodium Chloride 0.45% 1,000 ML IV SCH (15:22)
--- NOTE | 2017-08-30 17:11 | EKG ---
Test Reason : STAT Blood Pressure : / mmHG Vent. Rate : 087 BPM Atrial Rate : 087 BPM P-R Int : 000 ms QRS Dur : 078 ms QT Int : 394 ms P-R-T Axes : 065 050 069 degrees QTc Int : 474 ms Sinus rhythm with Blocked Premature atrial complexes Low voltage QRS Borderline ECG When compared with ECG of 29-AUG-2017 12:10, (Unconfirmed) Premature atrial complexes are now Present Confirmed by LOPEZ MARCH, SRegan ([id number]) on 08/30/2017 5:11:25 PM Referred By: MARY Confirmed By:DR. Prince MARROQUIN MD
[2017-08-30] MEDS: Acetaminophen 325 MG TAB PO PRN (23:14)
[2017-08-31] MEDS: Sodium Chloride 0.45% 1,000 ML IV SCH ×3 (02:25→19:20)
[2017-08-31 05:23] LABS: Anion Gap 18 mmol/L (10-20); BUN (Urea Nitrogen) 87 mg/dL (9.8-20.1); Calc. Creatinine Clearance 12 mL/min (70-130); Calcium 8.3 mg/dL (7.8-10.44); Carbon Dioxide 24 mmol/L (23-31); Chloride 100 mmol/L (98-107); Estimated GFR-MDRD 10; Glucose 87 mg/dL (83-110); Potassium 3.7 mmol/L (3.5-5.1); Sodium 138 mmol/L (136-145)
[2017-08-31] MEDS: Saccharomyces boulardii 250 MG CAP PO SCH (07:24)
--- NOTE | 2017-08-31 09:42 | PDOC.PN ---
- Subjective Encounter Start Date: 08/31/17 Encounter Start Time: 09:00 pt feels weak, no fever, vitals stable, did not sleep last night due to her restless leg - Objective Resuscitation Status: Resuscitation Status FULL:Full Resuscitation MAR Reviewed: Yes Vital Signs & Weight: Vital Signs (12 hours) Temp Pulse Resp BP BP Pulse Ox 08/31/17 08:00 98.4 F 76 20 99 08/31/17 07:27 98.4 F 76 20 132/80 95 08/30/17 23:24 98.7 F 64 18 114/71 96 Weight Admit Weight 162 lb Weight 168 lb 14.4 oz Most Recent Monitor Data Heart Rate from ECG 113 NIBP 150/88 NIBP BP-Mean 106 Respiration from ECG 36 SpO2 80 I&O: 08/30/17 08/31/17 09/01/17 06:59 06:59 06:59 Intake Total 3532.5 657 240 Output Total 6440 092 2395 Balance 1714.5 257 -1460 Result Diagrams: 08/30/17 03:30 08/31/17 03:59 Phys Exam - Physical Examination Constitutional: NAD HEENT: PERRLA, moist MMs, sclera anicteric Neck: no JVD, supple central line Respiratory: no wheezing, no rales, no rhonchi Cardiovascular: RRR, no significant murmur, no rub Gastrointestinal: soft, non-tender, no distention, positive bowel sounds Musculoskeletal: no edema, pulses present Neurological: non-focal, normal sensation, moves all 4 limbs Lymphatic: no nodes Psychiatric: normal affect, A&O x 3 Skin: no rash, normal turgor Dx/Plan (1) Acute kidney failure Status: Acute Comment: improving (2) Acute metabolic encephalopathy Code(s): G93.41 - METABOLIC ENCEPHALOPATHY Status: Resolved (3) Acute respiratory failure with hypoxia Code(s): J96.01 - ACUTE RESPIRATORY FAILURE WITH HYPOXIA Status: Resolved (4) Atrial fibrillation, new onset Code(s): I48.91 - UNSPECIFIED ATRIAL FIBRILLATION Status: Acute Comment: paroxysmal (5) Bacteremia due to Klebsiella pneumoniae Code(s): R78.81 - BACTEREMIA Status: Acute (6) Metabolic acidosis Code(s): E87.2 - ACIDOSIS Status: Resolved (7) NSTEMI (non-ST elevated myocardial infarction) Code(s): I21.4 - NON-ST ELEVATION (NSTEMI) MYOCARDIAL INFARCTION Status: Acute Comment: due to demand ischemia due to sepsis (8) Pancytopenia Code(s): D61.818 - OTHER PANCYTOPENIA Status: Acute Comment: due to sepsis (9) Sepsis with acute organ dysfunction Code(s): A41.9 - SEPSIS, UNSPECIFIED ORGANISM; R65.20 - SEVERE SEPSIS WITHOUT SEPTIC SHOCK Status: Acute (10) Septic shock Code(s): A41.9 - SEPSIS, UNSPECIFIED ORGANISM; R65.21 - SEVERE SEPSIS WITH SEPTIC SHOCK Status: Resolved (11) UTI (urinary tract infection) Status: Acute (12) Obesity (BMI 30.0-34.9) Code(s): E66.9 - OBESITY, UNSPECIFIED Status: Chronic - Plan cont current plan of care, continue antibiotics, PT/OT * start her home meds for restless leg syndrome, add restoril for sleep * start PT/OT * renal function improving slowly. will monitor * medication reviewed as below * symptomatic treatment * continue levaquin as per renal dose * expecting discharge in 24-48 hours * continue gentle IVF Review of Systems - Review of Systems Constitutional: weakness. negative: fever, chills, sweats, malaise, other ENT: negative: Ear Pain, Ear Discharge, Nose Pain, Nose Discharge, Nose Congestion, Mouth Pain, Mouth Swelling, Throat Pain, Throat Swelling, Other Respiratory: negative: Cough, Dry, Shortness of Breath, Hemoptysis, SOB with Excertion, Pleuritic Pain, Sputum, Wheezing Cardiovascular: negative: chest pain, palpitations, orthopnea, paroxysmal nocturnal dyspnea, edema, light headedness, other Gastrointestinal: negative: Nausea, Vomiting, Abdominal Pain, Diarrhea, Constipation, Melena, Hematochezia, Other Genitourinary: negative: Dysuria, Frequency, Incontinence, Hematuria, Retention , Other Musculoskeletal: negative: Neck Pain, Shoulder Pain, Arm Pain, Back Pain, Hand Pain, Leg Pain, Foot Pain, Other Skin: negative: Rash, Lesions, Alex, Bruising, Other - Medications/Allergies Allergies/Adverse Reactions: Allergies Allergy/AdvReac Type Severity Reaction Status Date / Time No Allergy Information Allergy Verified 08/28/17 19:42 Available Medications: Current Medications Acetaminophen (Tylenol) 650 mg PO Q4H PRN PRN Reason: Headache/Fever or Pain Last Admin: 08/30/17 23:14 Dose: 650 mg Al Hydroxide/Mg Hydroxide (Maalox) 30 ml PO Q6H PRN PRN Reason: Heartburn or Indigestion Albuterol/Ipratropium (Duoneb) 3 ml NEB [id number] PRN PRN Reason: SOB &/or Wheezing Bisacodyl (Dulcolax) 10 mg ID Q24H PRN PRN Reason: Constipation Calcium Carbonate (Tums) 1,000 mg PO Q4H PRN PRN Reason: Heartburn or Indigestion Cyclobenzaprine HCl (Flexeril) 5 mg PO TID PRN PRN Reason: Muscle Spasm Sodium Chloride (1/2 Normal Saline) 1,000 mls @ 75 mls/hr IV .[id number] ON LICENSE OF [facility] Last Admin: 08/31/17 06:30 Dose: 1,000 mls Levofloxacin (Levaquin) 500 mg PO Q2D@0600 ON LICENSE OF [facility] Stop: 09/13/17 06:01 Loperamide HCl (Imodium) 2 mg PO PRN PRN PRN Reason: Diarrhea/Loose Stools Loratadine (Claritin) 10 mg PO DAILYPRN PRN PRN Reason: Sinus Symptoms Magnesium Hydroxide (Milk Of Magnesium) 30 ml PO DAILYPRN PRN PRN Reason: Constipation Mineral Oil/White Petrolatum (Eucerin Cream) 0 gm TOP BIDPRN PRN PRN Reason: Dry Skin Miscellaneous Medication (Pharmacy To Dose) 1 each IVPB ONE PRN PRN Reason: Pharmacy to dose Stop: 09/07/17 15:03 Ondansetron HCl (Zofran Odt) 4 mg PO Q6H PRN PRN Reason: Nausea/Vomiting Ondansetron HCl (Zofran) 4 mg IVP Q6H PRN PRN Reason: Nausea/Vomiting Phenol (Chloraseptic [place] 180 Ml Bot) 0 ml PO PRN PRN PRN Reason: Sore Throat Ropinirole HCl (Requip) 1 mg PO HS ON LICENSE OF [facility] Saccharomyces Boulardii (Florastor) 250 mg PO DAILY ON LICENSE OF [facility] Last Admin: 08/31/17 07:24 Dose: 250 mg Senna (Senokot) 2 tab PO HSPRN PRN PRN Reason: Constipation Sodium Chloride ([place] Nasal [place] 0.65%) 0 ml EA NARE QIDPRN PRN PRN Reason: Nasal Congestion Sodium Chloride (Flush - Normal Saline) 10 ml IVF Q12HR [facility] Last Admin: 08/31/17 07:24 Dose: 10 ml Sodium Chloride (Flush - Normal Saline) 10 ml IVF PRN PRN PRN Reason: Saline Flush Temazepam (Restoril) 15 mg PO HSPRN PRN PRN Reason: Insomnia
[2017-08-31] MEDS: Cyclobenzaprine 10 MG TAB PO PRN ×2 (11:57→19:21)
--- NOTE | 2017-08-31 12:33 | PRG ---
DATE OF SERVICE: 08/31/2017 SUBJECTIVE: This morning, she is complaining she is weak, but denies any difficulty breathing. PHYSICAL EXAMINATION: VITAL SIGNS: Sats are 90% on 2 liters, respiratory rate 20, temperature 98, blood pressure 130/80. She got Klebsiella in the urine to which the antibiotics are being adjusted. She is now getting Leva geoff 500 mg. Adjust for renal failure. CHEST: Decreased breath sounds, no wheezing. CARDIAC: Normal S1, S2. No gallops. ABDOMEN: Soft, no masses. LABORATORY DATA: Creatinine 4.2, BUN is 88. IMPRESSION: 1. Klebseilla pneumoniae, Klebsiella sepsis, urinary tract infection. 2. Chronic renal failure. 3. Metabolic encephalopathy. 4. Marked deconditioning. PLAN: Pulmonary has ordered aggressive PT, supportive care. She will need eventually placement. Aggressive PT.
[2017-08-31] MEDS: rOPINIRole HCl 1 MG TAB PO SCH (16:22)
[2017-08-31] MEDS: Acetaminophen 325 MG TAB PO PRN (19:21)
[2017-08-31] MEDS: Temazepam 15 MG CAP PO PRN (20:19)
--- NOTE | 2017-08-31 21:17 | PRG ---
DATE OF SERVICE: 08/31/2017 SUBJECTIVE: Patient is noted with the following vital signs. PHYSICAL EXAMINATION: VITAL SIGNS: Afebrile, temperature 98.4, pulse 76, respiratory rate 20, blood pressure 114/71, O2 sa ts of 99%. HEENT: Unremarkable with moist oral mucosa. No conjunctival injection or icterus NECK: Supple. CARDIOVASCULAR: First and second heart sounds were heard. RESPIRATORY: Clear to auscultation. DIGESTIVE: Revealed a benign abdomen. EXTREMITIES: No peripheral edema. SKIN: No new gross rash. LYMPHATICS: No peripheral lymphadenopathy. LABORATORY INVESTIGATIONS: Significant for creatinine down to 4.22, BUN of 87. IMPRESSION: 1. Acute on chronic kidney disease, which seems to be improving. 2. Metabolic acidosis, resolved. 3. Sepsis. 4. Acute respiratory failure. PLAN: 1. We will continue with current renal supportive measures begin to recommend to deescalate th e IV fluid infusion. 2. Renally dose all medications per low GFR and avoid potential nephrotoxic agents. 3. Outpatient nephrology followup status post discharge strongly recommended.
[2017-09-01 06:12] LABS: Albumin 2.6 g/dL (3.4-4.8); Anion Gap 15 mmol/L (10-20); BUN (Urea Nitrogen) 72 mg/dL (9.8-20.1); BUN/Creatinine Ratio 22.57; Calc. Creatinine Clearance 16 mL/min (70-130); Calcium 8.2 mg/dL (7.8-10.44); Carbon Dioxide 25 mmol/L (23-31); Chloride 101 mmol/L (98-107); Estimated GFR-MDRD 14; Glucose 76 mg/dL (83-110); Phosphorus 4.4 mg/dL (2.3-4.7); Potassium 3.6 mmol/L (3.5-5.1); Sodium 137 mmol/L (136-145)
[2017-09-01 06:54] LABS: Band 10 % (5-11); Eosinophils 7 % (0-10); Hemoglobin 10.1 g/dL (12.0-16.0); Lymphocytes 19 % (21-51); MDiff Complete? YES; Mean Corpuscular HGB CONC 33.9 g/dL (32.0-36.0); Mean Corpuscular Hemoglobin 30.9 pg (27.0-31.0); Mean Platelet Volume 7.9 fL (7.4-10.4); Monocytes 2 % (0-10); Neutrophil 62 % (42-75); Platelet Count 95 thou/uL (130-400); RBC Distribution Width 12.8 % (11.5-14.5); Red Blood Cell (RBC) Count 3.26 mill/uL (4.20-5.40); White Blood Cell (WBC) Count 12.9 thou/uL (4.8-10.8)
[2017-09-01] MEDS: Sodium Chloride 0.45% 1,000 ML IV SCH ×3 (07:52→22:59)
[2017-09-01] MEDS: Saccharomyces boulardii 250 MG CAP PO SCH (07:52)
--- NOTE | 2017-09-01 12:29 | PRG ---
DATE OF SERVICE: 09/01/2017 SUBJECTIVE: [place], this morning, she is better. She appears to be weak. OBJECTIVE: VITAL SIGNS: Temperature 99, 98% sat on 2 liters, blood pressure 130/60, pulse 80. CHEST: Decreased breath sounds, no wheezing. CARDIAC: Normal S1, S2. ABDOMEN: Soft, no masses. LABORATORY DATA: Creatinine is 3.19 and white count 12,000. IMPRESSION: 1. Gram negative sepsis, on p.o. antibiotics. 2. Respiratory failure, improved. 3. Severe deconditioning. PLAN: At this stage, no need for Pulmonary to see the patient. Continue antibiotics. Disposition as per primary care physician. Please call if needed.
[2017-09-01] MEDS: Cyclobenzaprine 10 MG TAB PO PRN (13:53)
--- NOTE | 2017-09-01 14:20 | PDOC.PN ---
- Subjective Encounter Start Date: 09/01/17 Encounter Start Time: 12:00 Patient is seen today, alert and oriented. She is waiting for placement to [facility]. She is Alert and oriented. - Objective Resuscitation Status: Resuscitation Status FULL:Full Resuscitation MAR Reviewed: Yes Vital Signs & Weight: Vital Signs (12 hours) Temp Pulse Resp BP BP BP Pulse Ox 09/01/17 11:51 99.1 F 88 20 181/77 H 90 L 09/01/17 11:42 90 L 09/01/17 09:49 136/80 128/77 09/01/17 08:00 99.0 F 81 18 98 09/01/17 07:56 99.0 F 81 18 122/74 98 09/01/17 04:19 97 Pulse Ox Pulse Ox 09/01/17 11:51 09/01/17 11:42 09/01/17 09:49 97 98 09/01/17 08:00 09/01/17 07:56 09/01/17 04:19 Weight Admit Weight 162 lb Weight 168 lb 14.4 oz Most Recent Monitor Data Heart Rate from ECG 113 NIBP 150/88 NIBP BP-Mean 106 Respiration from ECG 36 SpO2 80 I&O: 08/31/17 09/01/17 09/02/17 06:59 06:59 06:59 Intake Total 657 2041 240 Output Total 400 4300 Balance 257 -2259 240 Result Diagrams: 09/01/17 05:31 09/01/17 05:31 Radiology Reviewed by me: Yes Phys Exam - Physical Examination HEENT: PERRLA, moist MMs Neck: no nodes, no JVD Respiratory: no wheezing Cardiovascular: RRR, no significant murmur Gastrointestinal: soft, non-tender Musculoskeletal: no edema, pulses present Neurological: non-focal, normal sensation Lymphatic: no nodes Dx/Plan (1) Acute kidney failure Status: Acute Comment: improving (2) Atrial fibrillation, new onset Code(s): I48.91 - UNSPECIFIED ATRIAL FIBRILLATION Status: Acute Comment: paroxysmal (3) Bacteremia due to Klebsiella pneumoniae Code(s): R78.81 - BACTEREMIA Status: Acute Comment: Need to Continue PO Antibitoics Renally dosed. Stbale. Repeat blood Cultures orderd. (4) NSTEMI (non-ST elevated myocardial infarction) Code(s): I21.4 - NON-ST ELEVATION (NSTEMI) MYOCARDIAL INFARCTION Status: Acute Comment: due to demand ischemia due to sepsis (5) Pancytopenia Code(s): D61.818 - OTHER PANCYTOPENIA Status: Acute Comment: due to sepsis (6) Sepsis with acute organ dysfunction Code(s): A41.9 - SEPSIS, UNSPECIFIED ORGANISM; R65.20 - SEVERE SEPSIS WITHOUT SEPTIC SHOCK Status: Acute Comment: Resolved (7) UTI (urinary tract infection) Status: Acute (8) Pulmonary hypertension Code(s): I27.20 - PULMONARY HYPERTENSION, UNSPECIFIED Status: Chronic (9) Acute metabolic encephalopathy Code(s): G93.41 - METABOLIC ENCEPHALOPATHY Status: Resolved - Plan cont current plan of care, plan discussed w/ family, continue antibiotics, PT/OT , social worker palliative care, respiratory therapy, incentive spirometry, out of bed/ ambulate, DVT proph w/lovenox * . Review of Systems - Review of Systems Constitutional: weakness Eyes: negative: Pain, Vision Change, Conjunctivae Inflammation, Eyelid Inflammation, Redness, Other ENT: negative: Ear Pain, Ear Discharge, Nose Pain, Nose Discharge, Nose Congestion, Mouth Pain, Mouth Swelling, Throat Pain, Throat Swelling, Other Respiratory: negative: Cough, Dry, Shortness of Breath, Hemoptysis, SOB with Excertion, Pleuritic Pain, Sputum, Wheezing Cardiovascular: negative: chest pain, palpitations, orthopnea, paroxysmal nocturnal dyspnea, edema, light headedness, other Gastrointestinal: negative: Nausea, Vomiting, Abdominal Pain, Diarrhea, Constipation, Melena, Hematochezia, Other Genitourinary: negative: Dysuria, Frequency, Incontinence, Hematuria, Retention , Other Musculoskeletal: negative: Neck Pain, Shoulder Pain, Arm Pain, Back Pain, Hand Pain, Leg Pain, Foot Pain, Other Skin: negative: Rash, Lesions, Alex, Bruising, Other - Medications/Allergies Allergies/Adverse Reactions: Allergies Allergy/AdvReac Type Severity Reaction Status Date / Time No Allergy Information Allergy Verified 08/28/17 19:42 Available Medications: Current Medications Acetaminophen (Tylenol) 650 mg PO Q4H PRN PRN Reason: Headache/Fever or Pain Last Admin: 08/31/17 19:21 Dose: 650 mg Al Hydroxide/Mg Hydroxide (Maalox) 30 ml PO Q6H PRN PRN Reason: Heartburn or Indigestion Albuterol/Ipratropium (Duoneb) 3 ml NEB [id number] PRN PRN Reason: SOB &/or Wheezing Bisacodyl (Dulcolax) 10 mg ID Q24H PRN PRN Reason: Constipation Calcium Carbonate (Tums) 1,000 mg PO Q4H PRN PRN Reason: Heartburn or Indigestion Cyclobenzaprine HCl (Flexeril) 5 mg PO TID PRN PRN Reason: Muscle Spasm Last Admin: 09/01/17 13:53 Dose: 5 mg Sodium Chloride (1/2 Normal Saline) 1,000 mls @ 75 mls/hr IV .[id number] [facility] Last Admin: 09/01/17 07:52 Dose: 1,000 mls Levofloxacin (Levaquin) 500 mg PO Q2D@0600 [facility] Stop: 09/13/17 06:01 Last Admin: 09/01/17 05:25 Dose: 500 mg Loperamide HCl (Imodium) 2 mg PO PRN PRN PRN Reason: Diarrhea/Loose Stools Loratadine (Claritin) 10 mg PO DAILYPRN PRN PRN Reason: Sinus Symptoms Magnesium Hydroxide (Milk Of Magnesium) 30 ml PO DAILYPRN PRN PRN Reason: Constipation Mineral Oil/White Petrolatum (Eucerin Cream) 0 gm TOP BIDPRN PRN PRN Reason: Dry Skin Miscellaneous Medication (Pharmacy To Dose) 1 each IVPB ONE PRN PRN Reason: Pharmacy to dose Stop: 09/07/17 15:03 Ondansetron HCl (Zofran Odt) 4 mg PO Q6H PRN PRN Reason: Nausea/Vomiting Last Admin: 08/31/17 10:36 Dose: 4 mg Ondansetron HCl (Zofran) 4 mg IVP Q6H PRN PRN Reason: Nausea/Vomiting Phenol (Chloraseptic [place] 180 Ml Bot) 0 ml PO PRN PRN PRN Reason: Sore Throat Ropinirole HCl (Requip) 1 mg PO [facility] Last Admin: 08/31/17 16:22 Dose: 1 mg Saccharomyces Boulardii (Florastor) 250 mg PO DAILY [facility] Last Admin: 09/01/17 07:52 Dose: 250 mg Senna (Senokot) 2 tab PO HSPRN PRN PRN Reason: Constipation Sodium Chloride ([place] Nasal [place] 0.65%) 0 ml EA NARE QIDPRN PRN PRN Reason: Nasal Congestion Sodium Chloride (Flush - Normal Saline) 10 ml IVF Q12HR [facility] Last Admin: 09/01/17 07:53 Dose: 10 ml Sodium Chloride (Flush - Normal Saline) 10 ml IVF PRN PRN PRN Reason: Saline Flush Temazepam (Restoril) 15 mg PO HSPRN PRN PRN Reason: Insomnia Last Admin: 08/31/17 20:19 Dose: 15 mg
[2017-09-01] MEDS: rOPINIRole HCl 1 MG TAB PO SCH (20:51)
--- NOTE | 2017-09-01 22:26 | PRG ---
DATE OF SERVICE: 09/01/2017 SUBJECTIVE: Patient was seen and examined, no new complaints noted with the following vital signs. OBJECTIVE: VITAL SIGNS: Afebrile, temperature 99, pulse 81, respiration rate of 18, O2 saturation 98%, blood pr essure 129/77. HEENT: Unremarkable. CARDIOVASCULAR SYSTEM: First and second heart sounds were heard. RESPIRATORY SYSTEM: Clear to auscultation. DIGESTIVE SYSTEM: Revealed a benign abdomen with positive bowel sounds. EXTREMITIES: No peripheral edema. SKIN: No new gross rash. LYMPHATIC SYSTEM: No peripheral lymphadenopathy. LABORATORY INVESTIGATIONS: Showed a creatinine down to 3.19 with BUN of 72. IMPRESSION: 1. Acute on chronic kidney disease, which seems to be much improved. 2. Chronic kidney disease likely stage 4. PLAN: 1. Patient to continue with renal supportive measures. 2. Consider deescalating IV fluid. 3. Further management to be dependent on the clinical course.
[2017-09-02] MEDS: Temazepam 15 MG CAP PO PRN (01:08)
[2017-09-02] MEDS: Sodium Chloride 0.45% 1,000 ML IV SCH ×3 (09:27→21:37)
[2017-09-02] MEDS: Saccharomyces boulardii 250 MG CAP PO SCH (09:28)
[2017-09-02 09:47] LABS: Mean Corpuscular HGB CONC 34.2 g/dL (32.0-36.0); Mean Corpuscular Volume 90.7 fL (78.0-98.0); Mean Platelet Volume 7.3 fL (7.4-10.4); Platelet Count 142 thou/uL (130-400); RBC Distribution Width 12.6 % (11.5-14.5); Red Blood Cell (RBC) Count 3.22 mill/uL (4.20-5.40); White Blood Cell (WBC) Count 16.4 thou/uL (4.8-10.8)
[2017-09-02 10:05] LABS: Anion Gap 14 mmol/L (10-20); BUN (Urea Nitrogen) 46 mg/dL (9.8-20.1); Calc. Creatinine Clearance 22 mL/min (70-130); Calcium 8.2 mg/dL (7.8-10.44); Carbon Dioxide 25 mmol/L (23-31); Chloride 103 mmol/L (98-107); Estimated GFR-MDRD 21; Glucose 96 mg/dL (83-110); Potassium 3.4 mmol/L (3.5-5.1); Sodium 139 mmol/L (136-145)
[2017-09-02 13:01] LABS: Band 19 % (5-11); Eosinophils 2 % (0-10); Lymphocytes 5 % (21-51); MDiff Complete? YES; Metamyelocyte 1 % (0-0); Monocytes 1 % (0-10); Neutrophil 68 % (42-75); PLT Morphology Comment Appears Adequate; RBC Morphology Normal; Reactive Lymphocytes 4 % (0-10)
[2017-09-02 14:09] VITALS: BMI 28.4
[2017-09-02] MEDS: Acetaminophen 325 MG TAB PO PRN (14:45)
--- NOTE | 2017-09-02 15:03 | PDOC.PN ---
- Subjective Encounter Start Date: 09/02/17 Encounter Start Time: 14:00 Patient is maxim[facility] today, along with compound worker and Nurse curt, pt was wanting to go home today, explained to her She has eelvated WBC and high risk for sepsis worseing, Pt is Refusing to understand, She did not allow us to talk to her son and also shut off her who is at bedside, pt is not giving any reason to go home and she says she will go to [facility] tomorrow to get admitted through [facility]. Explained to her about going to [facility], to complete her PT/OT, as she is very weak, and high risk for falls and risk of headinjury and fractures with falls. pt understand she is weak and could fall, but she is taking a risk of going home. She was alert and oriented to time , place, person. - Objective Resuscitation Status: Resuscitation Status FULL:Full Resuscitation MAR Reviewed: Yes Vital Signs & Weight: Vital Signs (12 hours) Temp Pulse Resp BP BP Pulse Ox 09/02/17 11:00 99.5 F 89 18 147/79 H 97 09/02/17 10:20 99 F 92 18 161/83 H 96 09/02/17 08:00 99.5 F 89 18 96 09/02/17 04:00 97.7 F 87 18 129/82 93 L Weight Admit Weight 162 lb Weight 155 lb 6 oz Most Recent Monitor Data Heart Rate from ECG 113 NIBP 150/88 NIBP BP-Mean 106 Respiration from ECG 36 SpO2 80 I&O: 09/01/17 09/02/17 09/03/17 06:59 06:59 06:59 Intake Total 2041 1180 Output Total 4300 3000 Balance -2259 -1820 Result Diagrams: 09/02/17 09:29 09/02/17 09:29 Radiology Reviewed by me: Yes Phys Exam - Physical Examination HEENT: PERRLA, moist MMs Neck: no nodes, no JVD Respiratory: no wheezing, no rales Cardiovascular: RRR, no significant murmur Gastrointestinal: soft, non-tender Musculoskeletal: no edema, pulses present Neurological: non-focal, normal sensation Lymphatic: no nodes Psychiatric: normal affect, A&O x 3 Dx/Plan (1) Sepsis Code(s): A41.9 - SEPSIS, UNSPECIFIED ORGANISM Status: Acute Comment: Worseing WBC noted today, only source of infection was UTI with bactremia, , explained to patient, if WBC is worseing tomorrow, she will be taking risks of going home, Called her PCP office and Made an apointment with him tomorrow at 930 Am as she is adamant on going home even againt medical advice, if WBC comes down tomorrow she can have a follow up with PCP in Am and have closley monitor her. if Worseing WBC, Pt is strongly recommeded not to go home. Will discuss with Case lucrecia tomorrow. (2) Acute kidney failure Status: Acute Comment: improving, Creatiine 2.1, discussed with Dr. mobley , he was ook with her going home from renal stand point. (3) Bacteremia due to Klebsiella pneumoniae Code(s): R78.81 - BACTEREMIA Status: Acute Comment: Need to Continue PO Antibitoics Renally dosed. Stbale. Repeat blood Cultures orderd. (4) NSTEMI (non-ST elevated myocardial infarction) Code(s): I21.4 - NON-ST ELEVATION (NSTEMI) MYOCARDIAL INFARCTION Status: Acute Comment: due to demand ischemia due to sepsis, resolved, will continue to monitor. (5) Pancytopenia Code(s): D61.818 - OTHER PANCYTOPENIA Status: Ruled-out Comment: due to sepsis (6) Sepsis with acute organ dysfunction Code(s): A41.9 - SEPSIS, UNSPECIFIED ORGANISM; R65.20 - SEVERE SEPSIS WITHOUT SEPTIC SHOCK Status: Resolved Comment: Resolved (7) UTI (urinary tract infection) Status: Acute Comment: gram Negative bacteremia, Repeat blood Cultures are pending, Will need to Monitor for clearance. Low grade fevers. (8) Pulmonary hypertension Code(s): I27.20 - PULMONARY HYPERTENSION, UNSPECIFIED Status: Chronic (9) Acute metabolic encephalopathy Code(s): G93.41 - METABOLIC ENCEPHALOPATHY Status: Resolved - Plan cont current plan of care, plan discussed w/ family, root catheter (remove it,) , continue antibiotics, PT/OT, respiratory therapy, incentive spirometry, out of bed/ambulate, DVT proph w/lovenox * . - Discharge Day Encounter end time: 15:00 Review of Systems - Review of Systems Constitutional: fever, weakness, malaise Eyes: negative: Pain, Vision Change, Conjunctivae Inflammation, Eyelid Inflammation, Redness, Other ENT: negative: Ear Pain, Ear Discharge, Nose Pain, Nose Discharge, Nose Congestion, Mouth Pain, Mouth Swelling, Throat Pain, Throat Swelling, Other Respiratory: negative: Cough, Dry, Shortness of Breath, Hemoptysis, SOB with Excertion, Pleuritic Pain, Sputum, Wheezing Cardiovascular: negative: chest pain, palpitations, orthopnea, paroxysmal nocturnal dyspnea, edema, light headedness, other Gastrointestinal: negative: Nausea, Vomiting, Abdominal Pain, Diarrhea, Constipation, Melena, Hematochezia, Other Genitourinary: negative: Dysuria, Frequency, Incontinence, Hematuria, Retention , Other Musculoskeletal: negative: Neck Pain, Shoulder Pain, Arm Pain, Back Pain, Hand Pain, Leg Pain, Foot Pain, Other Skin: negative: Rash, Lesions, Alex, Bruising, Other Neurological: Weakness - Medications/Allergies Allergies/Adverse Reactions: Allergies Allergy/AdvReac Type Severity Reaction Status Date / Time No Allergy Information Allergy Verified 08/28/17 19:42 Available Medications: Current Medications Acetaminophen (Tylenol) 650 mg PO Q4H PRN PRN Reason: Headache/Fever or Pain Last Admin: 09/02/17 14:45 Dose: 650 mg Al Hydroxide/Mg Hydroxide (Maalox) 30 ml PO Q6H PRN PRN Reason: Heartburn or Indigestion Albuterol/Ipratropium (Duoneb) 3 ml NEB [id number] PRN PRN Reason: SOB &/or Wheezing Bisacodyl (Dulcolax) 10 mg [place] Q24H PRN PRN Reason: Constipation Calcium Carbonate (Tums) 1,000 mg PO Q4H PRN PRN Reason: Heartburn or Indigestion Cyclobenzaprine HCl (Flexeril) 5 mg PO TID PRN PRN Reason: Muscle Spasm Last Admin: 09/01/17 13:53 Dose: 5 mg Sodium Chloride (1/2 Normal Saline) 1,000 mls @ 75 mls/hr IV .[id number] [facility] Last Admin: 09/02/17 11:15 Dose: Not Given Levofloxacin (Levaquin) 500 mg PO Q2D@0600 [facility] Stop: 09/13/17 06:01 Last Admin: 09/01/17 05:25 Dose: 500 mg Loperamide HCl (Imodium) 2 mg PO PRN PRN PRN Reason: Diarrhea/Loose Stools Loratadine (Claritin) 10 mg PO DAILYPRN PRN PRN Reason: Sinus Symptoms Magnesium Hydroxide (Milk Of Magnesium) 30 ml PO DAILYPRN PRN PRN Reason: Constipation Mineral Oil/White Petrolatum (Eucerin Cream) 0 gm TOP BIDPRN PRN PRN Reason: Dry Skin Miscellaneous Medication (Pharmacy To Dose) 1 each IVPB ONE PRN PRN Reason: Pharmacy to dose Stop: 09/07/17 15:03 Ondansetron HCl (Zofran Odt) 4 mg PO Q6H PRN PRN Reason: Nausea/Vomiting Last Admin: 08/31/17 10:36 Dose: 4 mg Ondansetron HCl (Zofran) 4 mg IVP Q6H PRN PRN Reason: Nausea/Vomiting Phenol (Chloraseptic [place] 180 Ml Bot) 0 ml PO PRN PRN PRN Reason: Sore Throat Ropinirole HCl (Requip) 1 mg PO [facility] Last Admin: 09/01/17 20:51 Dose: 1 mg Saccharomyces Boulardii (Florastor) 250 mg PO DAILY [facility] Last Admin: 09/02/17 09:28 Dose: Not Given Senna (Senokot) 2 tab PO HSPRN PRN PRN Reason: Constipation Sodium Chloride ([place] Nasal [place] 0.65%) 0 ml EA NARE QIDPRN PRN PRN Reason: Nasal Congestion Sodium Chloride (Flush - Normal Saline) 10 ml IVF Q12HR [facility] Last Admin: 09/02/17 09:19 Dose: 10 ml Sodium Chloride (Flush - Normal Saline) 10 ml IVF PRN PRN PRN Reason: Saline Flush Temazepam (Restoril) 15 mg PO HSPRN PRN PRN Reason: Insomnia Last Admin: 09/02/17 01:08 Dose: 15 mg
[2017-09-02] MEDS: rOPINIRole HCl 1 MG TAB PO SCH (21:37)
[2017-09-03] MEDS: Sodium Chloride 0.45% 1,000 ML IV SCH (01:39)
[2017-09-03 06:25] LABS: Anion Gap 10 mmol/L (10-20); BUN (Urea Nitrogen) 36 mg/dL (9.8-20.1); Calc. Creatinine Clearance 31 mL/min (70-130); Calcium 8.1 mg/dL (7.8-10.44); Carbon Dioxide 27 mmol/L (23-31); Chloride 105 mmol/L (98-107); Estimated GFR-MDRD 33; Glucose 92 mg/dL (83-110); Potassium 3.2 mmol/L (3.5-5.1); Sodium 139 mmol/L (136-145)
[2017-09-03 06:41] LABS: Band 24 % (5-11); Eosinophils 1 % (0-10); Hemoglobin 8.6 g/dL (12.0-16.0); Lymphocytes 8 % (21-51); MDiff Complete? YES; Mean Corpuscular HGB CONC 34.5 g/dL (32.0-36.0); Mean Corpuscular Hemoglobin 31.3 pg (27.0-31.0); Mean Corpuscular Volume 90.6 fL (78.0-98.0); Mean Platelet Volume 7.3 fL (7.4-10.4); Metamyelocyte 1 % (0-0); Monocytes 2 % (0-10); Neutrophil 64 % (42-75); PLT Morphology Comment Appears Adequate; Platelet Count 167 thou/uL (130-400); RBC Distribution Width 12.5 % (11.5-14.5); Red Blood Cell (RBC) Count 2.75 mill/uL (4.20-5.40); White Blood Cell (WBC) Count 13.9 thou/uL (4.8-10.8)
[2017-09-03 06:44] VITALS: BP 149/84; TEMP 98.9
--- NOTE | 2017-09-03 07:43 | PDOC.EVN ---
Event Note - Event Note Event Note: Nurse concern about pt wanting to leave this am given her abnormal labs and her vitals. pt and her family is in the room and i did explain to her and her family that it would be unsafe to go home given her medical issues not being resolved as of yet. Pt stated " i do not like this hospital and i do not want to be here". Per nursing pt's transfer was denied to [facility]. Pt and daughter stated " we do not want to be here and want to go home and we understand the risk including ". pt will sign out AMA.
--- NOTE | 2017-09-05 17:07 | EKG ---
Test Reason : Blood Pressure : / mmHG Vent. Rate : 062 BPM Atrial Rate : 062 BPM P-R Int : 144 ms QRS Dur : 080 ms QT Int : 492 ms P-R-T Axes : 073 035 048 degrees QTc Int : 499 ms Normal sinus rhythm Low voltage QRS Prolonged QT Abnormal ECG When compared with ECG of 29-AUG-2017 06:00, (Unconfirmed) Sinus rhythm has replaced Atrial fibrillation Vent. rate has decreased BY 38 BPM Confirmed by CLAUDIA MAGAÑA (2) on 09/05/2017 5:07:15 PM Referred By: POLLO Confirmed By:CLAUDIA MAGAÑA
--- NOTE | 2017-09-05 17:07 | EKG ---
Test Reason : STAT Blood Pressure : / mmHG Vent. Rate : 100 BPM Atrial Rate : 084 BPM P-R Int : 000 ms QRS Dur : 076 ms QT Int : 418 ms P-R-T Axes : 000 056 061 degrees QTc Int : 539 ms Atrial fibrillation Low voltage QRS Prolonged QT Abnormal ECG No previous ECGs available Confirmed by CLAUDIA MAGAÑA (2) on 09/05/2017 5:06:53 PM Referred By: MARY Confirmed By:CLAUDIA MAGAÑA
== END 2017-09-03 07:56 | disposition left against medical advice (07) | DRG 871 ==
LOC: ERS 12:59 → CCU 14:16 → T4-B 08-30 13:37
PROVIDERS: ADMIT Internal Medicine; ATTEND Internal Medicine
PROC: 5A1935Z Respiratory Ventilation, Less than 24 Consecutive Hours (ICD-10-PCS; principal; 2017-08-28)
PROC: 0BH17EZ Insertion of Endotracheal Airway into Trachea, Via Natural or Artificial Opening (ICD-10-PCS; 2017-08-28)
PROC: 02HV33Z Insertion of Infusion Device into Superior Vena Cava, Percutaneous Approach (ICD-10-PCS; 2017-08-28)
DX: A41.59 Other Gram-negative sepsis (principal); R65.21 Severe sepsis with septic shock; G93.41 Metabolic encephalopathy; N17.0 Acute kidney failure with tubular necrosis; I21.A1 Myocardial infarction type 2; J96.01 Acute respiratory failure with hypoxia; N39.0 Urinary tract infection, site not specified; E87.2 Acidosis; D61.818 Other pancytopenia; N18.4 Chronic kidney disease, stage 4 (severe); E87.6 Hypokalemia; E86.0 Dehydration; G25.81 Restless legs syndrome; I48.0 Paroxysmal atrial fibrillation; I27.20 Pulmonary hypertension, unspecified; E66.9 Obesity, unspecified; Z68.27 Body mass index [BMI] 27.0-27.9, adult; Z79.899 Other long term (current) drug therapy
CPT/HCPCS: 36415; 36556; 51702; 71045; 76770; 80048; 80053; 80069; 81003; 81015; 82330; 82533; 82550; 82553; 82570; 82803; 82805; 83605; 83690; 83735; 84100; 84156; 84443; 84484; 85025; 85049; 85300; 85362; 85379; 85384; 85610; 85730; 87040; 87077; 87086; 87149; 87186; 93005; 93010; 93306; 94002; 94003; 96360; 96361; 96365; 96375; 99292; A4216; C9113; G8978-GP-CK; G8979-GP-CI; G8987-GO-CK; G8988-GO-CI; J1265; J1720; J2060; J2250; J2543; J2704; J3370; J3475; J3480; J7050; J7070; Q0162